=== PATIENT | female | born 1930 | race Hispanic/Latino ===

== ENCOUNTER → 2022-08-27 | Outpatient (CLI) | payer OTHER ==
[~2022-08-27] MED LIST: AMLO-257 PO; ASPI-1197 PO; CEFU500T67 PO; LEVO75TA10 PO; LISI40TA9 PO
== END | disposition home or self-care (01) ==
LOC: RAH 09:40
PROVIDERS: ATTEND Family Medicine
DX: N28.1 Cyst of kidney, acquired (principal); R94.5 Abnormal results of liver function studies
CPT/HCPCS: 76700